=== PATIENT | male | born 1980 | race Caucasian/White ===

== ENCOUNTER 2018-12-06 01:00 | Emergency (ER) | payer BC ==
[2018-12-06] MEDS ORDERED: Methocarbamol 1 GM in Sodium Chloride 0.9% 250 ML 250 ML IVPB ONE (02:00)
[2018-12-06] MEDS ORDERED: Ketorolac Tromethamine 30 MG/ML VIAL ONE (02:36)
== END 2018-12-06 03:33 | disposition home or self-care (01) ==
LOC: ERS 01:00
DX: M62.830 Muscle spasm of back (principal); I10 Essential (primary) hypertension; Z79.899 Other long term (current) drug therapy
CPT/HCPCS: 96365; 96375; J1885; J2800; J7050

== ENCOUNTER 2018-12-07 04:03 | Emergency (ER) | payer BC ==
[2018-12-07] MEDS ORDERED: Ketorolac Tromethamine 60 MG/2 ML VIAL ONE (04:36)
--- NOTE | 2018-12-07 08:36 | RAD ---
LEFT SHOULDER 3 VIEWS: HISTORY: Shoulder pain. FINDINGS: There are no signs of fracture or dislocation. IMPRESSION: Negative left shoulder. POS: OFF
== END 2018-12-07 04:56 | disposition home or self-care (01) ==
LOC: ERS 04:03
DX: M25.512 Pain in left shoulder (principal); I10 Essential (primary) hypertension; Z79.1 Long term (current) use of non-steroidal anti-inflammatories (NSAID)
CPT/HCPCS: 96372; J1885

== ENCOUNTER 2019-04-04 13:24 | Outpatient (CLI) | payer BC ==
--- NOTE | 2019-04-04 15:49 | RAD ---
CERVICAL SPINE: 04/04/19 A total of five views. HISTORY: Cervical radiculopathy. FINDINGS: Cervical vertebrae maintain normal height and alignment in the neutral position. There is loss of dis c space at C6-7. Mild anterior spurring at C5-C6 and C7 levels. Mild posterior spondylosis at C6-7. No significant listhesis identified with flexion or extension. IMPRESSION: Mild degenerative changes at C5, C6 and C7 with mild loss of disc space at C6-7. POS: KAN
== END 2019-04-04 13:25 | disposition home or self-care (01) ==
LOC: SCSRAD 13:24
PROVIDERS: ATTEND Family Medicine
DX: M54.2 Cervicalgia (principal); M47.812 Spondylosis without myelopathy or radiculopathy, cervical region
CPT/HCPCS: 72050

== ENCOUNTER 2020-01-10 12:24 | Outpatient (CLI) | payer BC ==
--- NOTE | 2020-01-10 12:48 | RAD ---
Exam: Right hip 2 views: HISTORY: Right hip pain COMPARISON: None FINDINGS: No evidence for fracture, dislocation, or other significant acute osseous abnormality. IMPRESSION: No significant acute process.
--- NOTE | 2020-01-10 12:49 | RAD ---
EXAM: Lumbar spine 2 views: HISTORY: Arthritis, low back pain, right hip pain COMPARISON: None FINDINGS: No evidence for acute fracture or dislocation involving the visualized spine. There are disc osteophytosis and facet arthrosis changes. No evidence for malalignment. No evidence for a bone lesion. IMPRESSION: Spondylosis. No significant acute process.
== END 2020-01-10 12:25 | disposition home or self-care (01) ==
LOC: BICRAD 12:24
PROVIDERS: ATTEND Physician Assistant
DX: M25.551 Pain in right hip (principal); M47.816 Spondylosis without myelopathy or radiculopathy, lumbar region
CPT/HCPCS: 72100

== ENCOUNTER 2022-04-14 06:38 | Emergency (ER) | payer BC ==
[2022-04-14 07:44] LABS: ALT (SGPT) 21 U/L (8-55); AST (SGOT) 14 U/L (5-34); Alkaline Phosphatase 64 U/L (40-110); Anion Gap 12 mmol/L (10-20); BUN (Urea Nitrogen) 6 mg/dL (8.9-20.6); Bilirubin, Total 1.9 mg/dL (0.2-1.2); Calc. Creatinine Clearance 0 mL/min (70-130); Calcium 9.3 mg/dL (7.8-10.44); Carbon Dioxide 29 mmol/L (22-29); Chloride 102 mmol/L (98-107); Globulin 3.5 g/dL (2.4-3.5); Glucose 103 mg/dL (70-105); Lipase 35 U/L (8-78); Potassium 3.7 mmol/L (3.5-5.1); Protein, Total 7.5 g/dL (6.0-8.3); Sodium 139 mmol/L (136-145)
[2022-04-14 07:56] LABS: #Eosinphils 0.1 thou/uL (0.0-0.7); #Lymphocytes 1.4 thou/uL (1.20-3.40); #Monocytes 0.7 thou/uL (0.11-0.59); #Neutrophils 5.1 thou/uL (1.40-6.50); %Basophils 0.3 % (0.0-1.0); %Eosinophils 0.8 % (0.0-10.0); %Lymphocytes 19.6 % (21.0-51.0); %Monocytes 9.9 % (0.0-10.0); %Neutrophils 69.3 % (42.0-75.0); Hemoglobin 16.1 g/dL (14.0-18.0); Mean Corpuscular HGB CONC 33.2 g/dL (32.0-36.0); Mean Corpuscular Hemoglobin 30.8 pg (27.0-31.0); Mean Corpuscular Volume 92.7 fL (78.0-98.0); Platelet Count 140 thou/uL (130-400); RBC Distribution Width 12.5 % (11.5-14.5); Red Blood Cell (RBC) Count 5.21 mill/uL (4.70-6.10); White Blood Cell (WBC) Count 7.3 thou/uL (4.8-10.8)
== END 2022-04-14 09:00 | disposition home or self-care (01) ==
LOC: ERS 06:38
DX: K52.9 Noninfective gastroenteritis and colitis, unspecified (principal); I10 Essential (primary) hypertension; M19.90 Unspecified osteoarthritis, unspecified site
CPT/HCPCS: 36415; 71045; 74177; 80053; 83690; 84484; 85025; 93005

== ENCOUNTER 2022-04-21 22:02 | Emergency (ER) | payer BC ==
[2022-04-21 22:27] LABS: #Basophils 0.1 thou/uL (0.0-0.2); #Eosinphils 0.1 thou/uL (0.0-0.7); #Lymphocytes 2.7 thou/uL (1.20-3.40); #Monocytes 0.6 thou/uL (0.11-0.59); #Neutrophils 3.2 thou/uL (1.40-6.50); %Eosinophils 1.8 % (0.0-10.0); %Lymphocytes 41.1 % (21.0-51.0); %Monocytes 8.5 % (0.0-10.0); %Neutrophils 47.6 % (42.0-75.0); Hemoglobin 15.2 g/dL (14.0-18.0); Mean Corpuscular HGB CONC 34.1 g/dL (32.0-36.0); Mean Corpuscular Hemoglobin 30.8 pg (27.0-31.0); Mean Corpuscular Volume 90.3 fL (78.0-98.0); Mean Platelet Volume 8.7 fL (7.4-10.4); Platelet Count 192 thou/uL (130-400); RBC Distribution Width 12.3 % (11.5-14.5); Red Blood Cell (RBC) Count 4.93 mill/uL (4.70-6.10); White Blood Cell (WBC) Count 6.6 thou/uL (4.8-10.8)
[2022-04-21 22:49] LABS: ALT (SGPT) 61 U/L (8-55); AST (SGOT) 33 U/L (5-34); Alkaline Phosphatase 53 U/L (40-110); Anion Gap 11 mmol/L (10-20); BUN (Urea Nitrogen) 9 mg/dL (8.9-20.6); Bilirubin, Total 0.9 mg/dL (0.2-1.2); Calc. Creatinine Clearance 0 mL/min (70-130); Calcium 8.8 mg/dL (7.8-10.44); Carbon Dioxide 29 mmol/L (22-29); Chloride 105 mmol/L (98-107); Globulin 3.1 g/dL (2.4-3.5); Glucose 96 mg/dL (70-105); Lipase 94 U/L (8-78); Potassium 4.4 mmol/L (3.5-5.1); Protein, Total 7.1 g/dL (6.0-8.3); Sodium 141 mmol/L (136-145)
[2022-04-21 23:48] LABS: Bilirubin Negative (Negative); Blood, Urine Negative (Negative); Clarity Clear (Clear); Glucose, Urine (Dipstick) Normal (Negative); Ketone, Urine Negative (Negative); Leukocyte Negative Leu/uL (Negative); Nitrite Negative (Negative); Protein, Urine (Dipstick) Negative (Neg-Trace); Specific Gravity, Urine 1.016 (1.002-1.036); Urobilinogen Normal mg/dL (Less than 2); pH, Urine 6.5 (5.0-9.0)
== END 2022-04-21 23:58 | disposition home or self-care (01) ==
LOC: ERS 22:02
DX: R10.11 Right upper quadrant pain (principal); R10.13 Epigastric pain; I10 Essential (primary) hypertension; Z79.899 Other long term (current) drug therapy
CPT/HCPCS: 36415; 80053; 81003; 83690; 85025; 99284

== ENCOUNTER 2022-05-06 08:38 | Outpatient (CLI) | payer BC | END 2022-05-06 08:39 | disposition home or self-care (01) | LOC: BICULT 08:38 | PROVIDERS: ATTEND Family Medicine | DX: R10.11 Right upper quadrant pain (principal); K80.20 Calculus of gallbladder without cholecystitis without obstruction; K76.0 Fatty (change of) liver, not elsewhere classified | CPT/HCPCS: 76700 ==

== ENCOUNTER 2022-06-16 09:54 | Outpatient (CLI) | payer BC ==
[2022-06-16 11:04] LABS: #Eosinphils 0.1 10x3/uL (0.0-0.5); #Monocytes 0.4 10x3/uL (0.0-1.1); #Neutrophils 2.9 10x3/uL (1.5-8.4); %Basophils 0.8 % (0.0-2.0); %Eosinophils 1.8 % (0.0-6.0); %Lymphocytes 32.6 % (18.0-47.0); %Monocytes 8.1 % (0.0-10.0); %Neutrophils 56.3 % (40.0-75.0); Hemoglobin 14.8 g/dL (13.5-17.5); Mean Corpuscular HGB CONC 33.3 g/dL (32.0-36.0); Mean Corpuscular Hemoglobin 30.3 pg (27.0-33.0); Mean Platelet Volume 12.8 fl (7.4-10.4); Platelet Count 152 10x3/uL (150-450); RBC Distribution Width 12.5 % (11.5-14.5); Red Blood Cell (RBC) Count 4.88 10x6/uL (4.32-5.72); White Blood Cell (WBC) Count 5.1 10x3/uL (3.5-10.5)
[2022-06-16 11:38] LABS: ALT (SGPT) 29 U/L (8-55); AST (SGOT) 18 U/L (5-34); Albumin 4.1 g/dL (3.5-5.0); Alkaline Phosphatase 67 U/L (40-110); Anion Gap 14 mmol/L (10-20); BUN (Urea Nitrogen) 9 mg/dL (8.9-20.6); Bilirubin, Direct 0.6 mg/dL (0.1-0.3); Calc. Creatinine Clearance 0 mL/min (70-130); Calcium 9.5 mg/dL (7.8-10.44); Carbon Dioxide 28 mmol/L (22-29); Chloride 106 mmol/L (98-107); Estimated GFR 92; Glucose 112 mg/dL (70-105); Potassium 4.8 mmol/L (3.5-5.1); Protein, Total 6.9 g/dL (6.0-8.3); Sodium 143 mmol/L (136-145)
== END 2022-06-16 09:55 | disposition home or self-care (01) ==
LOC: LABBT 09:54
PROVIDERS: ATTEND Surgery
DX: Z01.812 Encounter for preprocedural laboratory examination (principal); K80.20 Calculus of gallbladder without cholecystitis without obstruction; Z20.822 Contact with and (suspected) exposure to COVID-19
CPT/HCPCS: 80048; 80076; 85025; 87811

== ENCOUNTER 2022-06-21 09:44 | Day surgery (SDC) | payer BC ==
[2022-06-18 11:15] VITALS: BMI 40.0
[2022-06-21] MEDS ORDERED: Lidocaine 1% w/Epinephrine 1:200K 30 ML VIAL ONE (12:08)
[2022-06-21] MEDS ORDERED: Bupivacaine 0.25% 10 ML VIAL ONE (12:08)
[2022-06-21] MEDS ORDERED: Bupivacaine/Epinephrine 0.25% 30 ML VIAL ONE (12:24)
[2022-06-21] MEDS ORDERED: Iopamidol 30 ML ONE (12:25)
[2022-06-21] MEDS ORDERED: cefOXitin 2 GM VIAL ONE (12:33)
[2022-06-21] MEDS ORDERED: Sodium Chloride 0.9% 100 ML ONE (12:33)
[2022-06-21] MEDS ORDERED: Midazolam HCl 2 mg/2 ml Vial ONE (12:40)
[2022-06-21] MEDS ORDERED: fentaNYL Citrate/PF 100 MCG/2 ML SYRINGE ONE ×2 (12:41→13:01)
[2022-06-21] MEDS ORDERED: Ondansetron PF 4 MG/2 ML Vial ONE (12:42)
[2022-06-21] MEDS ORDERED: Rocuronium Bromide 10 MG/ML (10ML VIAL) ONE (12:42)
[2022-06-21] MEDS ORDERED: Ketorolac Tromethamine 30 MG/ML VIAL ONE (12:42)
[2022-06-21] MEDS ORDERED: Dexamethasone 20 MG/5 ML VIAL ONE (12:42)
[2022-06-21] MEDS ORDERED: Glycopyrrolate 0.2 MG/ML 5 ML SYRINGE ONE (12:42)
[2022-06-21] MEDS ORDERED: Lidocaine 1% PF 5 ML VIAL ONE (12:42)
[2022-06-21] MEDS ORDERED: PROPOFOL 200 MG/20 ML VIAL ONE (12:42)
[2022-06-21] MEDS ORDERED: SUGAMMADEX SODIUM 200 MG/2 ML VIAL ONE (13:01)
[2022-06-21] MEDS ORDERED: Fentanyl 100 MCG/2 ML VIAL ONE (14:15)
== END 2022-06-21 15:15 | disposition home or self-care (01) ==
LOC: SDC 09:44
PROVIDERS: ATTEND Surgery
PROC: BF101ZZ Fluoroscopy of Bile Ducts using Low Osmolar Contrast (ICD-10-PCS; principal; 2022-06-21)
PROC: 0FT44ZZ Resection of Gallbladder, Percutaneous Endoscopic Approach (ICD-10-PCS; principal; 2022-06-21)
DX: K80.10 Calculus of gallbladder with chronic cholecystitis without obstruction (principal); K82.8 Other specified diseases of gallbladder; I10 Essential (primary) hypertension; E66.01 Morbid (severe) obesity due to excess calories; Z68.41 Body mass index [BMI] 40.0-44.9, adult; Z79.1 Long term (current) use of non-steroidal anti-inflammatories (NSAID); Z79.899 Other long term (current) drug therapy; Z98.84 Bariatric surgery status
CPT/HCPCS: 47532; 88304; C1713; J0694; J1100; J1885; J2250; J2405; J2704; J2710; J3010; J3490; Q9967; S0020

== ENCOUNTER 2023-08-02 09:08 | Outpatient (CLI) | payer BC | END 2023-08-02 09:09 | disposition home or self-care (01) | LOC: BICRAD 09:08 | PROVIDERS: ATTEND Internal Medicine | DX: M25.551 Pain in right hip (principal); M16.11 Unilateral primary osteoarthritis, right hip ==